=== PATIENT | female | born 1960 | race Caucasian/White ===

== ENCOUNTER 2016-06-05 11:58 | Inpatient (IN) | payer MEDICAID, OTHER ==
[2016-06-05] MEDS ORDERED: Acetaminophen TAB* 325 MG PO PRN (15:15)
[2016-06-05] MEDS ORDERED: Pseudoephedrine TAB* 30 MG PO PRN (15:30)
[2016-06-05] MEDS ORDERED: Magnesium Sulfate 2 GM IV IVPB ONE (16:00)
[2016-06-05] MEDS: NS 0.9% 1000 ML* 1,000 ML IV SCH (16:20)
[2016-06-05] MEDS: Magic M W2 Ben/Maal/Nyst/Lido* 240 ML MOUTHWASH (alt formulation) SWISH SWAL SCH ×2 (18:41→21:34)
[2016-06-05] MEDS: Ondansetron ODT TAB* 4 MG PO PRN (18:55)
[2016-06-05] MEDS ORDERED: Potassium Chlor TAB* 20 MEQ TAB.ER PO SCH (21:00)
[2016-06-05] MEDS: Potassium Chloride LIQUID* 20 MEQ PACKET PO SCH (21:50)
[2016-06-06] MEDS: NS 0.9% 1000 ML* 1,000 ML IV SCH ×2 (02:22→12:52)
[2016-06-06 05:35] LABS: Comments Flag Yes; Hematocrit 28 % (35-47); Mean Corpuscular HGB Conc 33 g/dl (31-36); Mean Corpuscular Hemoglobin 27 pg (27-31); Mean Corpuscular Volume 82 fL (80-97); Mean Platelet Volume 8 um3 (7.4-10.4); Red Blood Count 3.33 10^6/ul (4.0-5.4); White Blood Count 1.2 10^3/ul (3.5-10.8)
[2016-06-06 05:36] LABS: Red Cell Distribution Width 22 % (10.5-15)
[2016-06-06 05:57] LABS: Albumin 4.3 g/dL (3.2-5.2); BUN/Creatinine Ratio 8.9 (8-20); Calcium 8.4 mg/dL (8.6-10.3); EGFR African American 144.5 (>60); EGFR Non-African American 112.4 (>60); Globulin 2.1 g/dL (2-4); Potassium 3.9 mmol/L (3.5-5.0); Total Bilirubin 0.5 mg/dL (0.2-1.0); Total Protein 6.4 g/dL (6.4-8.9)
[2016-06-06] MEDS: Ondansetron ODT TAB* 4 MG PO PRN (07:14)
[2016-06-06] MEDS: Potassium Chloride LIQUID* 20 MEQ PACKET PO SCH ×2 (08:58→20:27)
[2016-06-06] MEDS: Magic M W2 Ben/Maal/Nyst/Lido* 240 ML MOUTHWASH (alt formulation) SWISH SWAL SCH ×4 (08:59→20:28)
[2016-06-06] MEDS: Cetirizine* 10 MG TAB PO SCH (08:59)
[2016-06-06] MEDS ORDERED: Influenza VAC *QUAD* 2016-17* 0.5 ML SYRINGE IM ONE (09:00)
[2016-06-06] MEDS ORDERED: NON FORMULARY MED 1 DOSE DOSE PO SCH (09:00)
--- NOTE | 2016-06-06 09:29 | PN ---
Progress Note - Progress Note SOAP: Subjective: []Today appears improved. She has a very masked affect, slow response times. No pain. Reports weakness and difficulty with balance, dizzy all the time. Discussed with and current state is not her baseline but has been progressive since chemotherapy started. Per report she has been taking medication as directed. Has had continued nausea. Had been independent, he also reports that she has been more dizzy, fallen a few times. Acetaminophen (Tylenol Tab*) 975 mg PO Q8HR PRN PRN Reason: PAIN Cetirizine HCl (Zyrtec*) 10 mg PO DAILY [facility] Last Admin: 06/06/16 08:59 Dose: 10 mg Sodium Chloride (Ns 0.9% 1000 Ml*) 1,000 mls @ 100 mls/hr IV PER RATE [facility] Last Admin: 06/06/16 02:22 Dose: 100 mls/hr Multi-Ingredient Mouthwash/Gargle (Magic M W2 Brady/Maal/Nyst/Lido*) 10 ml SWISH SWAL QID [facility] Last Admin: 06/06/16 08:59 Dose: 10 ml Non-Formulary Medication (Non Formulary Med(Nf)) 1 dose PO DAILY [facility] Ondansetron HCl (Zofran Odt Tab*) 4 mg PO Q6H PRN PRN Reason: NAUSEA Last Admin: 06/06/16 07:14 Dose: 4 mg Potassium Chloride (Klor-Con Liquid*) 20 meq PO BID [facility] Last Admin: 06/06/16 08:58 Dose: 20 meq Pseudoephedrine HCl (Sudafed Tab*) 30 mg PO BID PRN PRN Reason: SINUS CONGESTION Objective: [] Vital Signs Temp Pulse Resp BP Pulse Ox 97.4 F 110 16 125/64 95 06/06/16 07:30 06/06/16 07:30 06/06/16 07:30 06/06/16 07:30 06/06/16 07:30 HEENT - pale and allopecia. No thrush. CTA RRR S1S2 Has good BS and NT Neuro - Slow to respond but oriented. Describes a history consistent with husbands report. Reflex +1 to +2 and strength 5/5 x 4. Normal finger to nose, slow movement. did not walk Assessment: []56 year old with progressive difficulty with balance and new mental status changes. Differential is medication effect, [employer] impact of chemotherapy and MTX, malignance. Plan: []1. Will need to be in hospital, hold clonazepam and Compazine, zofran for nausea 2. MRI brain with rahel 3. PT/OT 4. Neutropenia. BC and antibiotics for Temp > 100.5 5. Follow potassium
[2016-06-06] MEDS ORDERED: Gadoteridol* (CONTRAST) 279.3 MG/ML 10 ML IV ONE (14:56)
--- NOTE | 2016-06-06 15:57 | RAD ---
INDICATION: Confusion and lymphoma possible CVA. COMPARISON: There are no prior studies available for comparison. TECHNIQUE: Sagittal T1, axial T1, T2, susceptibility, FLAIR and diffusion-weighted images were obtained. In addition, axial, sagittal and coronal T1-weighted images were obtained following intravenous injection of 13 ml of ProHance contrast. FINDINGS: The ventricles, cisterns and sulci appear to be within normal limits. No significant focal abnormality or mass effect is seen. No abnormal area of enhancement is seen. No areas of restricted diffusion are present. There is no evidence for infarct or hemorrhage. The visualized portion of the paranasal sinuses and mastoid air cells appear clear. IMPRESSION: NEGATIVE EXAM.
[2016-06-06] MEDS: Famotidine TAB* 20 MG PO SCH (18:16)
[2016-06-07] MEDS: NS 0.9% 1000 ML* 1,000 ML IV SCH (04:15)
[2016-06-07 04:24] LABS: Hematocrit 28 % (35-47); Hemoglobin 9.2 g/dl (12.0-16.0); Mean Corpuscular HGB Conc 33 g/dl (31-36); Mean Corpuscular Hemoglobin 27 pg (27-31); Mean Corpuscular Volume 83 fL (80-97); Mean Platelet Volume 8 um3 (7.4-10.4); Red Blood Count 3.38 10^6/ul (4.0-5.4); Red Cell Distribution Width 22 % (10.5-15)
[2016-06-07 04:29] LABS: Comments Flag Yes
[2016-06-07 04:30] LABS: Add Diff/Slide Review? Slide Review Added; White Blood Count 2.7 10^3/ul (3.5-10.8)
[2016-06-07 04:39] LABS: Albumin 4.2 g/dL (3.2-5.2); BUN/Creatinine Ratio 6.9 (8-20); Calcium 8.3 mg/dL (8.6-10.3); EGFR African American 138.8 (>60); EGFR Non-African American 107.9 (>60); Magnesium 2.2 mg/dL (1.9-2.7); Potassium 3.7 mmol/L (3.5-5.0); Total Bilirubin 0.4 mg/dL (0.2-1.0); Total Protein 6.2 g/dL (6.4-8.9)
[2016-06-07 05:00] LABS: Eosinophils % 1 % (0-6); Immature Granulocytes 12 % (0-9); Myelocytes % 2 % (0-1); Neutrophil % 64 % (38-83); RBC Morphology Normal (Normal); Reactive Lymph % 1 % (0-6); Toxic Granulation 1+
[2016-06-07] MEDS: Cetirizine* 10 MG TAB PO SCH (07:49)
[2016-06-07] MEDS: Potassium Chloride LIQUID* 20 MEQ PACKET PO SCH ×2 (07:49→21:02)
[2016-06-07] MEDS: Famotidine TAB* 20 MG PO SCH (07:49)
[2016-06-07] MEDS: Magic M W2 Ben/Maal/Nyst/Lido* 240 ML MOUTHWASH (alt formulation) SWISH SWAL SCH ×4 (09:04→21:02)
--- NOTE | 2016-06-07 12:57 | PN ---
Subjective Date of Service: 06/07/16 Interval History: Pt feels " much better". As per d/w pt's RN pt is much more interactive and awake than yesterday. Still slow to respond/talk. Objective Active Medications: Acetaminophen (Tylenol Tab*) 975 mg PO Q8HR PRN PRN Reason: PAIN Cetirizine HCl (Zyrtec*) 10 mg PO DAILY [facility] Last Admin: 06/07/16 07:49 Dose: 10 mg Famotidine (Pepcid Tab*) 20 mg PO DAILY [facility] Last Admin: 06/07/16 07:49 Dose: 20 mg Multi-Ingredient Mouthwash/Gargle (Magic M W2 Brady/Maal/Nyst/Lido*) 10 ml SWISH SWAL QID [facility] Last Admin: 06/07/16 09:04 Dose: 10 ml Ondansetron HCl (Zofran Odt Tab*) 4 mg PO Q6H PRN PRN Reason: NAUSEA Last Admin: 06/06/16 07:14 Dose: 4 mg Potassium Chloride (Klor-Con Liquid*) 20 meq PO BID [facility] Last Admin: 06/07/16 07:49 Dose: 20 meq Pseudoephedrine HCl (Sudafed Tab*) 30 mg PO BID PRN PRN Reason: SINUS CONGESTION Vital Signs 06/06/16 06/06/16 06/06/16 15:45 19:31 19:58 Temperature 98.0 F 97.9 F Pulse Rate 102 107 Respiratory 18 16 16 Rate Blood Pressure 116/63 137/80 (mmHg) O2 Sat by Pulse 97 97 97 Oximetry 06/06/16 06/07/16 06/07/16 23:55 04:23 07:34 Temperature 98.5 F 98.8 F Pulse Rate 99 98 95 Respiratory 14 16 16 Rate Blood Pressure 126/61 111/53 134/65 (mmHg) O2 Sat by Pulse 99 99 99 Oximetry 06/07/16 11:25 Temperature 98.0 F Pulse Rate 103 Respiratory 16 Rate Blood Pressure 127/67 (mmHg) O2 Sat by Pulse 98 Oximetry Oxygen Devices in Use Now: None Appearance: 56 yo f in nAd, AAOx3, slow to respond Eyes: No Scleral Icterus, PERRLA Ears/Nose/Mouth/Throat: NL Teeth, Lips, Gums, Mucous Membranes Moist Neck: NL Appearance and Movements; NL JVP, Trachea Midline Respiratory: Symmetrical Chest Expansion and Respiratory Effort, Clear to Auscultation Cardiovascular: NL Sounds; No Murmurs; No JVD, RRR Abdominal: NL Sounds; No Tenderness; No Distention, No Hepatosplenomegaly Lymphatic: No Cervical Adenopathy Extremities: No Edema, No Clubbing, Cyanosis Skin: No Rash or Ulcers, No Nodules or Sclerosis Neurological: Alert and Oriented x 3, NL Muscle Strength and Tone, - Result Diagrams: 06/07/16 04:13 06/07/16 04:14 Assess/Plan/Problems-Billing Assessment: 56 yo F with h/o lymphoma presents with lethargy - Patient Problems (1) Lethargy Comment: most likely related to bezodiazepines. MRI brain unremarkable slowely recovering. (2) Leukopenia Comment: improved. (3) DVT prophylaxis Comment: igor anticoagulants due to thrombocytopenia
[2016-06-07] MEDS ORDERED: NS 0.9% 1000 ML* 1,000 ML IV SCH (15:45)
[2016-06-07] MEDS: Ondansetron ODT TAB* 4 MG PO PRN ×2 (16:19→22:43)
[2016-06-07] MEDS: Prochlorperazine TAB* 10 MG PO PRN (22:43)
[2016-06-08 05:30] LABS: Albumin 4.4 g/dL (3.2-5.2); BUN/Creatinine Ratio 8.3 (8-20); Calcium 8.8 mg/dL (8.6-10.3); EGFR African American 133.5 (>60); EGFR Non-African American 103.8 (>60); Globulin 2.1 g/dL (2-4); Potassium 3.7 mmol/L (3.5-5.0); Total Bilirubin 0.4 mg/dL (0.2-1.0); Total Protein 6.5 g/dL (6.4-8.9)
[2016-06-08 05:33] LABS: Hematocrit 29 % (35-47); Hemoglobin 9.7 g/dl (12.0-16.0); Mean Corpuscular HGB Conc 33 g/dl (31-36); Mean Corpuscular Hemoglobin 27 pg (27-31); Mean Corpuscular Volume 82 fL (80-97); Mean Platelet Volume 8 um3 (7.4-10.4); Red Blood Count 3.57 10^6/ul (4.0-5.4); White Blood Count 4.1 10^3/ul (3.5-10.8)
[2016-06-08 05:34] LABS: Comments Flag Yes
[2016-06-08 05:35] LABS: Add Diff/Slide Review? Slide Review Added; Red Cell Distribution Width 22 % (10.5-15)
[2016-06-08 05:57] LABS: Immature Granulocytes 6 % (0-9); Metamyelocytes % 2 % (0-2); Myelocytes % 1 % (0-1); Neutrophil % 86 % (38-83)
[2016-06-08 05:58] LABS: Macrocytosis 1+; Microcytosis 1+; Spherocytes 1+; Toxic Granulation 1+
[2016-06-08] MEDS: Prochlorperazine TAB* 10 MG PO PRN (06:28)
[2016-06-08] MEDS: Ondansetron ODT TAB* 4 MG PO PRN (06:28)
[2016-06-08] MEDS: Cetirizine* 10 MG TAB PO SCH (09:10)
[2016-06-08] MEDS: Potassium Chloride LIQUID* 20 MEQ PACKET PO SCH ×2 (09:10→20:27)
[2016-06-08] MEDS: Famotidine TAB* 20 MG PO SCH (09:10)
[2016-06-08] MEDS: Magic M W2 Ben/Maal/Nyst/Lido* 240 ML MOUTHWASH (alt formulation) SWISH SWAL SCH ×4 (09:11→20:28)
[2016-06-08] MEDS ORDERED: diPHENhydraMINE PO* 25 MG PO PRN (09:20)
[2016-06-08] MEDS ORDERED: Dexamethasone IV* 4 MG in NS 0.9% 50 ML* 50 ML IVPB ONE (10:00)
[2016-06-08 11:26] LABS: Hematocrit 33 % (35-47); Hemoglobin 10.9 g/dl (12.0-16.0); Mean Corpuscular HGB Conc 34 g/dl (31-36); Mean Corpuscular Hemoglobin 28 pg (27-31); Mean Corpuscular Volume 82 fL (80-97); Mean Platelet Volume 7 um3 (7.4-10.4); Red Blood Count 3.95 10^6/ul (4.0-5.4); Red Cell Distribution Width 22 % (10.5-15); White Blood Count 7.8 10^3/ul (3.5-10.8)
[2016-06-08 11:37] LABS: Add Diff/Slide Review? Slide Review Added; Comments Flag Yes
[2016-06-08 11:42] LABS: EGFR Non-African American 101.8 (>60)
[2016-06-08 12:04] LABS: Hypochromasia 1+; Immature Granulocytes 10 % (0-9); Metamyelocytes % 2 % (0-2); Neutrophil % 78 % (38-83); Reactive Lymph % 1 % (0-6); Tear Drop Cells 2+
[2016-06-08] MEDS: Heparin VIAL(*) 5000 UNITS/ML VIAL (FIVE THOUSAND) SUBCUT SCH ×2 (15:04→20:30)
[2016-06-09] MEDS: Heparin VIAL(*) 5000 UNITS/ML VIAL (FIVE THOUSAND) SUBCUT SCH (05:12)
[2016-06-09] MEDS: Famotidine TAB* 20 MG PO SCH (07:25)
[2016-06-09] MEDS: Magic M W2 Ben/Maal/Nyst/Lido* 240 ML MOUTHWASH (alt formulation) SWISH SWAL SCH (07:25)
[2016-06-09] MEDS: Cetirizine* 10 MG TAB PO SCH (07:25)
[2016-06-09] MEDS: Potassium Chloride LIQUID* 20 MEQ PACKET PO SCH (07:25)
[2016-06-09 08:50] VITALS: BP 123/64
[2016-06-09 09:36] LABS: ALT 19 U/L (7-52); AST 12 U/L (13-39); Albumin 4.5 g/dL (3.2-5.2); Alkaline Phosphatase 61 U/L (34-104); Total Protein 6.5 g/dL (6.4-8.9)
== END 2016-06-09 13:40 | disposition home or self-care (01) | DRG 812 ==
LOC: MEDTELE 14:25 → MED 06-07 22:14
PROVIDERS: ADMIT Internal Medicine Hematology & Oncology; ATTEND Internal Medicine Hematology & Oncology
DX: T43.3X1A Poisoning by phenothiazine antipsychotics and neuroleptics, accidental (unintentional), initial encounter (principal); B37.0 Candidal stomatitis; C83.34 Diffuse large B-cell lymphoma, lymph nodes of axilla and upper limb; R53.83 Other fatigue; F41.9 Anxiety disorder, unspecified; F32.9 Major depressive disorder, single episode, unspecified; D72.819 Decreased white blood cell count, unspecified; D69.6 Thrombocytopenia, unspecified; Z79.1 Long term (current) use of non-steroidal anti-inflammatories (NSAID); Z79.899 Other long term (current) drug therapy; Z87.891 Personal history of nicotine dependence; Z80.42 Family history of malignant neoplasm of prostate; R59.0 Localized enlarged lymph nodes
CPT/HCPCS: 36415; 70553; 80053; 80076; 82565; 83735; 84520; 85025; 85027; 85610; 85730; 99222; 99232; 99239; A9270-GY; A9579; J1100; J1642; J1644; J3475; Q0164

== ENCOUNTER 2017-07-01 11:07 | Observation (INO) | payer BC ==
[2017-07-01] MEDS ORDERED: Ondansetron INJ* 2 MG/ML VIAL IV PRN (11:25)
[2017-07-01] MEDS ORDERED: Acetaminophen TAB* 325 MG PO PRN (11:25)
[2017-07-01] MEDS ORDERED: LORazepam TAB(*) 0.5 MG PO PRN (11:32)
[2017-07-01] MEDS ORDERED: ALPRAZolam TAB* 0.5 MG PO PRN (11:32)
[2017-07-01] MEDS ORDERED: Hydrocortisone 1% CREAM* 30 GM TUBE TOPICAL PRN (11:34)
--- OUTSIDE RECORDS SUMMARY | 2017-07-01 12:40 | XMS REPORT ---
:1960 External Reference #:[id number] Author Organization [facility] Address [address] [address] Phone [phone] Care Team Providers Name Role Phone Cristi Jeffers MD Primary Care Physician Unavailable Payers Type Date Identification Numbers Payment Provider Subscriber Medicaid Expires: Policy Number: [id number] Medicaid Zohreh Live 2016 Group Name: 1 1 [address] PayID: [id number] [place] [address] Medigap Part B Effective: Policy Number: BS Facets Zohreh Live 2015 [id number] Expires: 2016 PayID: [id number] [address] [address] [place] [address] Medigap Part B Policy Number: [id number] BS Facets Zohreh Live PayID: [id number] [address] [address] [place] [address] Problems Description No Information Social History Type Date Description Comments Marital Status Single Lives With Spouse Lives With Alone Occupation [employer] [place] ETOH Use Denies alcohol use Recreational Drug Use Denies Drug Use Smoking Patient is a former smoker Exercise Type/Frequency Exercises regularly Allergies, Adverse Reactions, Alerts Date Description Reaction Status Severity Comments 03/12/2016 NKDA active Medications Medication Date Status Form Strength Qnty SIG Indications Ordering Provider Acetaminophen 000 Active Tablets 325mg as needed Unknown 000 Cetirizine HCL 0 Active Tablets 10mg 1 by mouth Unknown 000 every day Decongestant 0 Active Tablets 60mg as needed Unknown 000 Melatonin 0 Active Capsules 5mg 2 by mouth Unknown 000 every night at bedtime Pepto-Bismol 0 Active Chewtabs 262mg 1 tabs Unknown 000 every 6 hour as needed diarrhea Valerian 0 Active Capsules as needed Unknown 000 Lorazepam 0 Hx Tablets 0.5mg as needed Unknown 000 Vital Signs Date Vital Result Comment 06/02/2017 Height 63 inches 5'3" Weight 185.00 lb Heart Rate 82 /min BP Systolic 140 mmHg BP Diastolic 88 mmHg Respiratory Rate 16 /min Body Temperature 97.1 F BMI (Body Mass Index) 32.8 kg/m2 03/13/2016 Height 63 inches 5'3" Weight 178.00 lb Heart Rate 102 /min BP Systolic 140 mmHg BP Diastolic 70 mmHg Respiratory Rate 18 /min Body Temperature 98.1 F BMI (Body Mass Index) 31.5 kg/m2 Results Test Date Test Result H/L Range Note CBC Auto Diff 02/09/2017 White Blood Count 4.1 10^3/uL 3.5-10.8 Red Blood Count 4.26 10^6/uL 4.0-5.4 Hemoglobin 12.0 g/dL 12.0-16.0 Hematocrit 35 % 35-47 Mean Corpuscular Volume 83 fL 80-97 Mean Corpuscular Hemoglobin 28 pg 27-31 Mean Corpuscular HGB Conc 34 g/dL 31-36 Red Cell Distribution Width 15 % 10.5-15 Platelet Count 156 10^3/uL 150-450 Mean Platelet Volume 6 um3 Low 7.4-10.4 Abs Neutrophils 2.7 10^3/uL 1.5-7.7 Abs Lymphocytes 0.8 10^3/uL Low 1.0-4.8 Abs Monocytes 0.4 10^3/uL 0-0.8 Abs Eosinophils 0.1 10^3/uL 0-0.6 Abs Basophils 0 10^3/uL 0-0.2 Abs Nucleated RBC 0 10^3/uL Granulocyte % 65.2 % 38-83 Lymphocyte % 19.9 % Low 25-47 Monocyte % 10.8 % High 1-9 Eosinophil % 3.6 % 0-6 Basophil % 0.5 % 0-2 Nucleated Red Blood Cells % 0.1 Comp Metabolic Panel 02/09/2017 Sodium 138 mmol/L 133-145 Potassium 3.8 mmol/L 3.5-5.0 Chloride 101 mmol/L 101-111 Co2 Carbon Dioxide 29 mmol/L 22-32 Anion Gap 8 mmol/L 2-11 Glucose 97 mg/dL 70-100 Blood Urea Nitrogen 20 mg/dL 6-24 Creatinine 0.70 mg/dL 0.51-0.95 BUN/Creatinine Ratio 28.6 High 8-20 Calcium 9.9 mg/dL 8.6-10.3 Total Protein 7.3 g/dL 6.4-8.9 Albumin 4.9 g/dL 3.2-5.2 Globulin 2.4 g/dL 2-4 Albumin/Globulin Ratio 2.0 1-3 Total Bilirubin 0.30 mg/dL 0.2-1.0 Alkaline Phosphatase 58 U/L 34-104 Alt 24 U/L 7-52 Ast 19 U/L 13-39 Egfr Non- 86.9 >60 Egfr 111.7 >60 1 Laboratory test finding 02/09/2017 LDH 138 U/L Low 140-271 Laboratory test finding 03/18/2016 Surgical Pathology SEE RESULT BELOW 2 Laboratory test finding 03/18/2016 Reference Lab Test See Comment () 3 1 Because ethnic data is not always readily available, this report includes an eGFR for both -Americans and non- Americans. The National Kidney Disease Education Program (NKDEP) does not endorse the use of the MDRD equation for patients that are not between the ages of 18 and 70, are , have extremes of body size, muscle mass, or nutritional status, or are non- or non-. According to the National Kidney Foundation, irrespective of diagnosis, the stage of the disease is based on the level of kidney function: Stage Description GFR(mL/min/1.73 m(2)) 1 Kidney damage with normal or decreased GFR 90 2 Kidney damage with mild decrease in GFR 60-89 3 Moderate decrease in GFR 30-59 4 Severe decrease in GFR 15-29 5 Kidney failure <15 (or dialysis) 2 SEE RESULT BELOW Name: ZOHREH LIVE : [address]: Earl Justin MD Acct: [id number] Unit: [id number] AGE: 56 Location: OR Re03/18/16 SEX: F Status: REG SDC SPEC: [id number] KATHLEEN: 03/18/[address]: Earl Justin MD REQ: [id number] RECD: 03/18/16 STATUS: SOUT _ ORDERED: LEVEL V, BCL-2, BCL-6-ADD, XA02-XPA MYC amplification FISH has been performed at [facility], [place], [place]. The testing reveals: Test Result Flag Unit RefValue B-cell Lymphoma, FISH, Ts Result Summary Normal Interpretation See Comment No MYC rearrangement was observed, therefore this is unlikely to be "high- grade B-cell lymphoma, with MYC and BCL2 and/or BCL6 rearrangements" (previously known as "genetic double-hit lymphoma", currently reclassified per the 2016 World Health Organization Classification of Lymphoid Neoplasms; Swerdlow et al., Blood 127:8949-1579, 2016). Clinical and pathologic correlation is recommended. FISH studies interpreted in consultation with True Titus M.D. Result Table See Comment Abnormality Name Result %Abn Cutoff (%) 8q24.1(MYC sep) Normal <7.0% Result See Comment nuc madiha(MYCx2)[100] Of 100 nuclei, 0% had separation of 5'MYC and 3'MYC signals. Reason for Referral lymphoma Specimen Tissue, Paraffin Source See Comment RESULT: Left axillary lymph node Tissue ID [id number] Method See Comment Locus and probes [Strategy;#Nuclei;Class] 8q24(5'MYC,3'MYC) [BAP;100;ASR] Probe strategies include: BAP=break-apart probe. Additional Information See Comment CONTINUED ON NEXT PAGE * ML=Testing performed at Main Lab DEPARTMENT OF PATHOLOGY, [address] [place] [address] Manpreet Cook M.D. Director [facility] # [id number] RUN DATE: 04/15/16 [facility] LAB LIVE PAGE 2 Patient: ZOHREH LIVE [id number] (Continued) ADDENDUM (Continued) Test Performed by: [address] Freight: True Rock II, M.D., Ph.D. Addendum Signed (signature on file) Madison Schreiber MD 02/19 1325 FINAL DIAGNOSIS Left axillary lymph node, excisional biopsy: -- Diffuse large B-cell lymphoma. COMMENT: The following immunochemical stains were performed with appropriate controls: Bcl-2 positive Bcl-6 positive Ki-67 index positive in >90%, quantitated manually The immunoprofile supports the diagnosis. FISH for c-MYC translocation is pending and will be reported in an addendum. Dr. Cook reviewed this case in intradepartmental consultation and agrees with the diagnosis. PRE-OPERATIVE DIAGNOSIS Lymphoma GROSS DESCRIPTION The specimen is received fresh labeled, Left Axillary Lymph Node, and consists of a 2.2 x 1.5 x 1.1 cm dunne-red lymph node and adherent yellow fat. The cut surface is homogeneous dunne-pink. Received separately in the same container is a 1.4 x 1.0 by up to 0.5 cm aggregate of dunne-pink irregular probable lymphoid fragments. The specimen is serially sectioned and entirely submitted in cassettes A through D to include separately received tissue in cassette D. Signed (signature on file) Madison Schreiber MD 1029 END OF REPORT * ML=Testing performed at Main Lab DEPARTMENT OF PATHOLOGY, [address] [place] [address] Manpreet Cook M.D. Director [facility] # [id number] 3 Test Result Flag Unit RefValue B-cell Lymphoma, FISH, Ts Result Summary Normal Interpretation See Comment No MYC rearrangement was observed, therefore this is unlikely to be "high-grade B-cell lymphoma, with MYC and BCL2 and/or BCL6 rearrangements" (previously known as "genetic double-hit lymphoma", currently reclassified per the 2016 World Health Organization Classification of Lymphoid Neoplasms; Swerdlow et al., Blood 127:7220-2697, 2016). Clinical and pathologic correlation is recommended. FISH studies interpreted in consultation with True Titus M.D. Result Table See Comment Abnormality Name Result %Abn Cutoff (%) 8q24.1(MYC sep) Normal <7.0% Result See Comment nuc madiha(MYCx2)[100] Of 100 nuclei, 0% had separation of 5'MYC and 3'MYC signals. Reason for Referral lymphoma Specimen Tissue, Paraffin Source See Comment RESULT: Left axillary lymph node Tissue ID [id number] Method See Comment Locus and probes [Strategy;#Nuclei;Class] 8q24(5'MYC,3'MYC) [BAP;100;ASR] Probe strategies include: BAP=break-apart probe. Additional Information See Comment Previous Studies DATE SPECIMEN RESULT 03/13/2016 Marrow FISH for MYC within normal limits Disclaimer See Comment Applicable to Analyte Specific Reagent (ASR) and Laboratory Developed Tests (LDT). This test was developed and its performance characteristics determined by [facility] in a manner consistent with CLIA requirements. It has not been cleared or approved by the U.S. Food and Drug Administration. This FISH test does not rule out other chromosome abnormalities. Released By See Comment RESULT: Manpreet Novoa, Ph.D. Test Performed by: [place] [address] Freight: True Rock II, M.D., Ph.D. --- 03/27/16 1213 --- Ref Lab Test previously reported as: See Comment Test Result Flag Unit RefValue MYC (8q24), Angiosarcoma, FISH, Ts Interpretation See Comment RESULT: This test was cancelled because it was ordered in error. Reason for Referral lymphoma Specimen Tissue, Paraffin Source See Comment RESULT: Left axillary lymph node Tissue ID [id number] Released By See Comment RESULT: Julio Talavera M.D., Ph.D. Test Performed by: [address] Freight: True Rock II, M.D., Ph.D. Procedures Date CPT Code Description Status 05/29/2016 17238 ECHO Transthoracic, Real-Time 2D With Doppler And Color Completed Flow 03/20/2016 43746 ECHO Transthoracic, Real-Time 2D With Doppler And Color Completed Flow 03/18/2016 70530 Fluoroscopic Guidance For Cent Completed 03/18/2016 35961 Biopsy/Excision Lymph Node(S) Superficial Completed 03/18/2016 54462 Insertion Tunneled Cent Venous Cathr W Subcut Port 5 Completed Yrs Or Oldr Encounters Type Date Location Provider CPT E/M Dx Office Visit 02/18/2017 [facility] [place] [address] L30.9 11:10a [facility] Rola Smith, [address] C85.90 1:46p Hospitalists Mickey R53.83 Office Visit 03/13/2016 3:[facility]p [facility] Walsh, [address] C83.34 Of [facility] Plan of Care Future Appointment(s):06/10/2017 11:30 am - KAEL Duque at [facility]06/02/2017 - Daniel Rasheed MD, FACSL30.9 Dermatitis, unspecifiedComments:You may call on Wednesday to check the pathology result.Follow up:7-10 days for suture removal.
[2017-07-01] MEDS ORDERED: MESNA IVPB ONE (14:00)
[2017-07-01] MEDS ORDERED: IFOSFAMIDE IVPB ONE (14:00)
[2017-07-01] MEDS ORDERED: NS 0.9% IVPB ONE (14:00)
[2017-07-01] MEDS: Docusate CAP* 100 MG PO SCH ×2 (14:08→21:26)
[2017-07-01] MEDS: Enoxaparin(*) 40 MG/0.4 ML SYR SUBCUT SCH (14:08)
[2017-07-02 06:47] LABS: ABS Basophils 0 10^3/ul (0-0.2); ABS Eosinophils 0 10^3/ul (0-0.6); ABS Lymphocytes 0.4 10^3/ul (1.0-4.8); ABS Monocytes 0.2 10^3/ul (0-0.8); ABS Neutrophils 4.5 10^3/ul (1.5-7.7); ABS Nucleated RBC 0 10^3/ul; Eosinophil % 0.1 % (0-6); Hematocrit 34 % (35-47); Hemoglobin 11.7 g/dl (12.0-16.0); Lymphocyte % 8.1 % (25-47); Mean Corpuscular HGB Conc 35 g/dl (31-36); Mean Corpuscular Hemoglobin 29 pg (27-31); Mean Corpuscular Volume 84 fL (80-97); Mean Platelet Volume 6.3 um3 (7.4-10.4); Nucleated Red Blood Cells % 0; Platelet Count 122 10^3/ul (150-450); Red Blood Count 4.01 10^6/ul (4.0-5.4); Red Cell Distribution Width 14 % (10.5-15); White Blood Count 5.1 10^3/ul (3.5-10.8)
[2017-07-02 07:05] LABS: EGFR Non-African American 94.3 (>60)
[2017-07-02] MEDS: Docusate CAP* 100 MG PO SCH (07:21)
--- NOTE | 2017-07-02 08:16 | DS ---
- Discharge Summary DISCHARGE SUMMARY ADMIT DATE:07/01/17 DISCHARGE DATE: 07/02/17 DISCHARGE DIAGNOSIS: 1. inpatient chemotherapy for relapsed diffuse large b cell lymphoma 2. diffuse large b cell lymphoma DISCHARGE MEDICATIONS: Home Medications Medication Instructions Recorded Confirmed Type Acetaminophen [Acetaminophen Extra 1,000 mg PO Q8H PRN 03/16/16 07/01/17 History Stren] Pseudoephedrine HCl [Sudafed Nasal 30 mg PO BID PRN 03/16/16 07/01/17 History Decongestan] Ondansetron ODT TAB* [Zofran 4 MG 4 mg PO Q6H PRN #20 tab.odt 03/29/16 07/01/17 Rx Odt TAB*] Cetirizine* [ZyrTEC 10 MG TAB*] 10 mg PO DAILY 06/05/16 07/01/17 History Pepcid Complete 10-800-165 mg 1 tab PO DAILY 06/05/16 07/01/17 History diPHENhydraMINE PO* [Benadryl PO 25 mg PO BEDTIME PRN #30 tab 06/09/16 07/01/17 Rx 25 MG TAB*] Melatonin 2 cap PO BEDTIME 07/01/17 07/01/17 History Docusate CAP* [Colace Cap*] 100 mg PO BID cap 07/02/17 Rx Filgrastim [Neupogen] 480 mcg IJ DAILY #8 inj 07/02/17 Rx LORazepam TAB(*) [Ativan 0.5 MG 0.5 mg PO Q4H PRN #60 tab MDD 6 07/02/17 Rx TAB (*)] DISCHARGE FOLLOW UP: 07/08 at 9 am [facility] COURSE: ARMIN was admitted for inpatient R-ICE chemotherapy for her relapsed DLBCL, with plan for 2 cycles and PET. If response she will get a third cycle prior to autologous BMT at [facility] with Dr. Ramsay. She tolerated therapy well and will be discharged with neupogen to start tomorrow for 8 days. She was given ativan PRN for nausea along with home zofran. Of note, the lesion on her left thigh is clearly already regressing. 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 We did discuss neutropenic precautions, and need to not cut herself at work. >30 mins spent, >50% in face to face counsultation
[2017-07-02] MEDS: Enoxaparin(*) 40 MG/0.4 ML SYR SUBCUT SCH (11:22)
[2017-07-02] MEDS: NS 0.9% IV ONE ×2 (13:49→14:31)
[2017-07-02] MEDS: [UNRECOGNIZED DRUG - OTHER] IV ONE ×2 (13:49→14:31)
[2017-07-02] MEDS ORDERED: Dexamethasone IV* 4 MG/ML 1 ML (4 MG) IV SLOW PU ONE (14:00)
[2017-07-02] MEDS ORDERED: ETOPOSIDE IVPB ONE (14:00)
[2017-07-02] MEDS ORDERED: NS 0.9% IVPB ONE (14:00)
[2017-07-02 15:46] VITALS: BP 123/55
== END 2017-07-02 17:00 | disposition home or self-care (01) ==
LOC: INTOOBSV 11:25 → MED 11:25
PROVIDERS: ADMIT Internal Medicine Hematology & Oncology; ATTEND Internal Medicine Hematology & Oncology
DX: Z51.11 Encounter for antineoplastic chemotherapy (principal); C83.30 Diffuse large B-cell lymphoma, unspecified site; Z79.899 Other long term (current) drug therapy; Z88.8 Allergy status to other drugs, medicaments and biological substances; Z88.1 Allergy status to other antibiotic agents; Z87.891 Personal history of nicotine dependence
CPT/HCPCS: 36415; 80053; 85025; 96372; 96375; 96413; 96417; 99220; 99239; A9270-GY; G0378; J1100; J1642; J1650; J9181; J9209; J9280

== ENCOUNTER 2017-07-22 11:03 | Observation (INO) | payer BC ==
[2017-07-22] MEDS ORDERED: LORazepam INJ* 2 MG/ML 1 ML VIAL IV PUSH PRN (11:26)
[2017-07-22] MEDS ORDERED: Ondansetron INJ* 2 MG/ML VIAL IV PRN (11:26)
[2017-07-22] MEDS ORDERED: Ondansetron ODT TAB* 4 MG PO PRN (11:38)
[2017-07-22] MEDS ORDERED: Acetaminophen TAB* 325 MG PO PRN (11:38)
[2017-07-22] MEDS ORDERED: LORazepam TAB(*) 0.5 MG PO PRN (11:38)
[2017-07-22] MEDS ORDERED: NS 0.9% IVPB ONE (14:30)
[2017-07-22] MEDS ORDERED: MESNA IVPB ONE (14:30)
[2017-07-22] MEDS ORDERED: IFOSFAMIDE IVPB ONE (14:30)
--- NOTE | 2017-07-23 12:19 | DS ---
CC: Dr. Jeffers; Dr. Virginia House* DISCHARGE SUMMARY: DATE OF ADMISSION: 07/22/17 DATE OF DISCHARGE: 07/23/17 PRIMARY CARE PROVIDER: Dr. Jeffers. PRIMARY ONCOLOGIST: Dr. Virginia House. ATTENDING PHYSICIAN: Dr. Virginia House* (dictated by KAEL Whitley). DISCHARGING PROVIDER: KAEL Whitley PRIMARY DISCHARGE DIAGNOSIS: Inpatient chemotherapy for recurrent diffuse B- cell lymphoma, cycle 2 RICE. DISCHARGE MEDICATIONS: 1. Acetaminophen 500 mg p.o. q.8 hours as needed for pain or fever. 2. Cetirizine 10 mg p.o. daily. 3. Neupogen 480 mcg subcu daily starting 07/24/17 and continuing for 5 days. 4. Ativan 0.5 mg p.o. t.i.d. as needed for anxiety, nausea, or vomiting. 5. Melatonin 2 capsules p.o. at bedtime. 6. Zofran 4 mg p.o. q.6 hours as needed for nausea and vomiting. 7. Papaya enzyme 1 tablet p.o. daily. 8. Sudafed 30 mg p.o. b.i.d. as needed for congestion. 9. Valerian root 150 mg p.o. at bedtime as needed for insomnia. Medication changes: None. HOSPITAL IMAGING: None. HOSPITAL COURSE: This is a 57-year-old female with recurrent diffuse B-cell lymphoma, admitted for cycle 2 of RICE therapy. The patient completed the first portion of her cycle on an outpatient basis and tolerated this very well. She was admitted for 24-hour infusion of ifosfamide with mesna followed by fluid bolus. The patient's hospital stay was uncomplicated. She denied any complaints of nausea and vomiting. No rashes or mental status changes. No complaints of diarrhea or constipation. The patient tolerated cycle 1 very well with minimal nausea. She is given instructions to initiate Neupogen starting tomorrow, 07/24/17. She is familiar with appropriate self-administration at home. DISPOSITION AND FOLLOWUP PLAN: The patient is being discharged later this afternoon following completion of her chemotherapy to home. She has a planned PET scan with followup at [facility] next week to discuss further treatment planning and will see Dr. House in followup later in the week as well. The patient is encouraged to call our office with any questions or concerns. KAEL WHITLEY [id number]/[facility] #: [id number] [facility] CENTERAleshia
[2017-07-23] MEDS ORDERED: NS 0.9% 1000 ML* 1,000 ML IV ONE (14:30)
[2017-07-23] MEDS ORDERED: Dexamethasone IV* 4 MG/ML 1 ML (4 MG) IV SLOW PU ONE (15:00)
[2017-07-23] MEDS ORDERED: NS 0.9% IVPB ONE (15:30)
[2017-07-23] MEDS ORDERED: ETOPOSIDE IVPB ONE (15:30)
[2017-07-23 18:02] VITALS: BP 100/46
== END 2017-07-23 18:15 | disposition home or self-care (01) | DRG 693 ==
LOC: INTOOBSV 13:26 → OBSVTOIN 13:26 → MED 13:26
PROVIDERS: ADMIT Internal Medicine Hematology & Oncology; ATTEND Internal Medicine Hematology & Oncology
DX: Z51.11 Encounter for antineoplastic chemotherapy (principal); C83.30 Diffuse large B-cell lymphoma, unspecified site; F41.9 Anxiety disorder, unspecified; F32.9 Major depressive disorder, single episode, unspecified; N63.0 Unspecified lump in unspecified breast; Z87.891 Personal history of nicotine dependence
CPT/HCPCS: 36415; 80053; 85025; 85060; 96375; 96413; 96415; 99217; 99219; A9270-GY; G0378; J1100; J1200; J1453; J1642; J2469; J9045; J9181; J9208; J9209; J9280; J9310

== ENCOUNTER 2017-08-12 09:17 | Observation (INO) | payer BC ==
[2017-08-12] MEDS ORDERED: Acetaminophen TAB* 325 MG PO PRN (14:55)
[2017-08-12] MEDS ORDERED: NS 0.9% IVPB ONE ×6 (15:00)
[2017-08-12] MEDS ORDERED: MESNA IVPB ONE ×6 (15:00)
[2017-08-12] MEDS ORDERED: IFOSFAMIDE IVPB ONE ×6 (15:00)
[2017-08-12] MEDS ORDERED: Ondansetron ODT TAB* 4 MG PO PRN (15:05)
[2017-08-12] MEDS ORDERED: LORazepam TAB(*) 0.5 MG PO PRN (15:05)
[2017-08-12] MEDS ORDERED: LORazepam INJ* 2 MG/ML 1 ML VIAL IV PUSH PRN (15:24)
[2017-08-12] MEDS: Clotrimazole TROCHE* 10 MG TROCHE PO SCH ×2 (17:11→23:00)
[2017-08-13] MEDS ORDERED: Cetirizine* 10 MG TAB PO SCH (09:00)
[2017-08-13] MEDS: Clotrimazole TROCHE* 10 MG TROCHE PO SCH ×3 (09:06→18:33)
[2017-08-13 09:13] LABS: ABS Basophils 0 10^3/ul (0-0.2); ABS Eosinophils 0 10^3/ul (0-0.6); ABS Lymphocytes 0.3 10^3/ul (1.0-4.8); ABS Monocytes 0.2 10^3/ul (0-0.8); ABS Neutrophils 4.8 10^3/ul (1.5-7.7); ABS Nucleated RBC 0 10^3/ul; Eosinophil % 0 % (0-6); Hematocrit 27 % (35-47); Hemoglobin 9.1 g/dl (12.0-16.0); Lymphocyte % 5.7 % (25-47); Mean Corpuscular HGB Conc 34 g/dl (31-36); Mean Corpuscular Hemoglobin 30 pg (27-31); Mean Corpuscular Volume 88 fL (80-97); Mean Platelet Volume 6.7 um3 (7.4-10.4); Nucleated Red Blood Cells % 0; Platelet Count 112 10^3/ul (150-450); Red Blood Count 3.02 10^6/ul (4.0-5.4); Red Cell Distribution Width 18 % (10.5-15); White Blood Count 5.4 10^3/ul (3.5-10.8)
[2017-08-13 09:29] LABS: EGFR Non-African American 97.8 (>60)
--- NOTE | 2017-08-13 10:47 | PN ---
Progress Note - Progress Note Date of Service: 08/13/17 SOAP: Subjective: []Did well overnight. No nausea and will finish infusion in evening. No complications after cycle 2, grade II nausea. Has some pain swallowing. Acetaminophen (Tylenol Tab*) 650 mg PO Q4H PRN PRN Reason: FEVER/PAIN Cetirizine HCl (Zyrtec*) 10 mg PO DAILY [facility] PRN Reason: Protocol Last Admin: 08/13/17 09:06 Dose: 10 mg Clotrimazole (Mycelex Lynn*) 10 mg PO QID [facility] Last Admin: 08/13/17 09:06 Dose: 10 mg Dexamethasone Sodium Phosphate (Decadron Iv*) 8 mg IV SLOW PU ONCE ONE Stop: 08/13/17 14:31 Heparin Sodium (Porcine) (Heparin Flush Port (Ivad)) 5 ml FLUSH DAILY [facility] PRN Reason: Protocol Last Admin: 08/13/17 09:06 Dose: Not Given Ifosfamide 9,300 mg/ Mesna 9, (300 mg/ Sodium Chloride) 1,000 mls @ 41.667 mls/ hr IVPB ONCE ONE Stop: 08/13/17 14:59 Last Admin: 08/12/17 15:19 Dose: 41.667 mls/hr Etoposide 190 mg/ Sodium (Chloride) 509.5 mls @ 509.5 mls/hr IVPB ONCE ONE Stop: 08/13/17 16:59 Sodium Chloride (Ns 0.9% 1000 Ml*) 1,000 mls @ 500 mls/hr IV ONCE ONE Stop: 08/13/17 16:59 Lorazepam (Ativan Tab(*)) 0.5 mg PO TID PRN PRN Reason: ANXIETY Lorazepam (Ativan Inj*) 0.5 mg IV PUSH Q4H PRN PRN Reason: nausea/anxiety Ondansetron HCl (Zofran Odt Tab*) 4 mg PO Q6H PRN PRN Reason: NAUSEA Objective: [] Vital Signs Temp Pulse Resp BP Pulse Ox 98.4 F 81 18 114/58 99 08/13/17 07:38 08/13/17 07:38 08/13/17 08:00 08/13/17 07:38 08/13/17 07:38 HEENT - Mucosa moist, no thrush and no lesions CTA RRR S1S2 +BS NT ND No c/c/e Labs stable Assessment: []57 year old on RICE #3 Plan: []1. Discharge home today after infusion. 2. Compazine/Zofran at home 3. Call with any difficulty
[2017-08-13] MEDS ORDERED: Dexamethasone IV* 4 MG/ML 1 ML (4 MG) IV SLOW PU ONE ×2 (14:30)
[2017-08-13] MEDS ORDERED: NS 0.9% 1000 ML* 1,000 ML IV ONE ×2 (15:00)
[2017-08-13 15:59] VITALS: BP 113/49
[2017-08-13] MEDS ORDERED: ETOPOSIDE IVPB ONE ×4 (16:00)
[2017-08-13] MEDS ORDERED: NS 0.9% IVPB ONE ×4 (16:00)
--- NOTE | 2017-08-14 04:44 | DS ---
DISCHARGE SUMMARY: ADDENDUM: Addendum to OBV history and physical. DISCHARGE SUMMARY: DATE OF ADMISSION: 08/12/17 DATE OF DISCHARGE: 08/13/17 DISCHARGE DIAGNOSIS: Overnight chemotherapy for lymphoma, cycle 3 RICE. DISCHARGE MEDICATIONS: 1. Acetaminophen 500 mg p.o. q.8 as needed. 2. Cetirizine 10 mg p.o. daily. 3. Neupogen 480 mcg subcu daily starting 08/14/17 and continuing for 5 days. 4. Ativan 0.5 mg p.o. t.i.d. p.r.n. for anxiety, nausea, vomiting. 5. Melatonin 2 capsules p.o. at bedtime. 6. Papaya enzymes 1 daily. 7. Sudafed 30 mg b.i.d. as needed. 8. Valerian root 150 mg p.o. at bedtime as needed for insomnia. FOLLOWUP/PLAN: Followup will be next week with Dr. House and plan will be to proceed with transpl ant after this cycle. [id number]/[facility] #: [id number]
== END 2017-08-13 18:25 | disposition home or self-care (01) ==
LOC: MED 10:38 → INTOOBSV 10:38
PROVIDERS: ADMIT Internal Medicine Hematology & Oncology; ATTEND Internal Medicine Hematology & Oncology
DX: Z51.11 Encounter for antineoplastic chemotherapy (principal); C85.90 Non-Hodgkin lymphoma, unspecified, unspecified site
CPT/HCPCS: 36415; 80053; 85025; 96365; 96366; 96375; 99217; 99219; A9270-GY; G0378; J1100; J1642; J9181; J9208; J9209; J9280